=== PATIENT | female | born 1995 | race Two or more races ===

== ENCOUNTER 2025-01-07 09:43 | Outpatient (AMB) | payer MEDICAID, SELFPAY ==
--- NOTE | 2025-01-07 09:43 | AMB.OBINITIA ---
Vital Signs 01/07/25 09:56 Height 1.63 m Height Method Stated Weight 53.127 kg Weight Measurement Method Standing Scale BMI 20.0 BP 103/61 Blood Pressure Source Automatic Cuff Blood Pressure Location Left Upper Arm Position Sitting Respiration 16 Pulse 58 L Pulse Source Monitor Temp 96.8 F Temp Source Oral Pulse Oximetry (%) 98 Oxygen Delivery Method Room Air Allergies/Home Meds Allergies & Medications Allergies No Known Allergies Allergy (Verified 01/07/25 09:57) Medication Reconciliation vitamins-iron fumarate 27 mg iron-folic acid 0.8 mg tablet ( Vitamin) 1 tab PO QDAY 02/24/19 [History Confirmed 01/07/25] Intake Visit Data Collection New Patient or Established: New Patient (never been to [facility]) Reason for Visit:: Initial OB visit Consent obtained for Telemed Visit: No Seen by Clinical Staff ONLY (RN/MA): No Repair Servicer Required: No Do You Feel Safe at Home: Yes Authorities Contacted: N/A PCP or OBGYN visit in last 3 months: Yes Date of Last PCP or OBGYN visit: 11/04/24 Hx Now: Yes Are you currently on any form of Control: No Last menstrual period: 09/17/24 Pain Present Currently: No Pain Scale Used: Quick-Padilla/Numerical Pain scale:: 0 Smoking Status Smoking Status: Never smoker Questionnaires Covid-19 Vaccine Questionnaire Has patient been vacinated for Covid-19 Have you been vacinated for Covid-19: Yes PHQ-9 PHQ-2 Over the last 2 weeks, how often have you been bothered by any of the following problems? 1. Little interest or pleasure in doing things: not at all 2. Feeling down, depressed, or hopeless: not at all Total score: 0 PHQ-9 3. Trouble falling or staying asleep, or sleeping too much: Not at all 4. Feeling tired or having little energy: Not at all 5. Poor appetite or overeating: Not at all 6. Feeling bad about yourself - or that you are a failure or have let yourself or your family down: Not at all 7. Trouble concentrating on things, such as reading the newspaper or watching television: Not at all 8. Moving or speaking so slowly that other people could have noticed? - Or the opposite - being so fidgety or restless that you have been moving around a lot more than usual: not at all 9. Thoughts that you would be better off or of hurting yourself in some way: Not at all Total score: 0 If you checked off any problems, how difficult have these problems made it for you to do your work, take care of things at home, or get along with other people?: not difficult at all Source: Developed by Drs. Donato Fernando, Noris Rivero, Timmy Pete and colleagues, with an educational ermelinda from [employer]. Depression screen completed yes Social History Living Situation History Marital Status: Lives With: Family Housing: House Housing Other:: Employed at [employer] Tobacco History Smoking Status: Never smoker Second Hand Smoke Exposure: No Alcohol History Alcohol Intake: Never Domestic Abuse History Do You Feel Safe at Home: Yes Past Medical History Past Medical History Have you ever been diagnosed with any of the following: Neurological Problems Seizures: No Epilepsy: No Guillain-[place] Syndrome: No Edgar's Palsy: No Migraine: No Cardiology Problems Cardiac Arrhythmia: No Heart Murmur: No Deep Vein Thrombosis: No Hypertension: No Respiratory Problems Asthma: No Tuberculosis: No Pulmonary Embolism: No Sleep Apnea: No Smoking: No Stomache/Intestinal Problems Gall Bladder Disease: No Ulcer: No Irritable Bowel: No Gastroesophageal Reflux Disease: No Obesity: No Genital/Urinary Problems Renal Disease: No Kidney Stones: No Reproductive Problems Breast Cancer: No Endometriosis: No Fibroids: No Genital Herpes: No Gonorrhea: No Pelvic Inflammatory Disease: No Polycystic Ovarian Syndrome: No Previous Pregnancies: Yes (x3) Musculoskeletal Problems Arthritis: No Rheumatoid Arthritis: No Scoliosis: No Fibromyalgia: No Endocrine Problems Diabetes Mellitus Type 2: No Hyperthyroidism: No Hypothyroidism: No Blood Problems Anemia: No Clotting Problems: No Psychologic Problems Depression: No Anxiety: No Attention Deficit Disorder: No Other Problems Hospitalization: Yes ( x 3) Autoimmune Disease: No Blood Transfusions: No Anesthesia Reactions: No Surgical History Appendectomy: No Bariatric Surgery: No Breast Surgery: No History of Present Illness HPI Narrative 30 y/o unsure LMP presents for new OB with her spouse. Pt is tired and has increased appetite otherwise denies any OB problems, no VB, cramps, dysuria or pelvic pain, She is still her 14 month old. OB Initial Visit Menstrual History Menstrual reliability: unknown Flow: normal Menstrual regularity: regular Monthly: Yes Age at menarche: 13 On control pills at conception: No Date of positive home test: 12/17/24 Associated symptoms (LMP): Reports amenorrhea and breast tenderness Details: Pt unsure of LMP as she is breast feeding a 14 month old and has irregular cycles OB History : 4 Para: 3 Hx Total # of Abortions (Spontaneous & Elective): 0 # of Living Children: 3 Delivery History 1st : date: 02/27/19 sex: male Gestational age at delivery (weeks): 40 Delivery type: vaginal weight (lbs): 3175.147 g Delivery complications: no History of depression before or after : No Additional comments: Had epidural 2nd : date: 09/05/20 sex: female Gestational age at delivery (weeks): 39 Delivery type: vaginal weight (lbs): 2857.632 g Delivery complications: none History of depression before or after : No Additional comments: Delivered too rapidly for epidural 3rd : date: 07/03/23 sex: female Gestational age at delivery (weeks): 39 Delivery type: vaginal weight (lbs): 7200 g Delivery complications: none History of depression before or after : No Additional comments: Too rapid for epidural Infection History & Risk Evaluation History of STDs: none HIV risk evaluation: low risk Hepatitis B risk evaluation: low risk Patient or partner has history of Genital Herpes: No Varicella/chicken pox status: immunized Genetic Screening & History Genetic Screening/Teratology Counseling - Includes patient, baby's father, or anyone in either family with: 1. Patient's age 35 years or older as of estimated date of delivery: No 2. Thalassemia (Croatian, Mohawk, Mediterranean, or Background); MCV less than 80: No 3. Neural Tube Defect (Meningomyelocele, Spina Bifida, or Anencephaly): No 4. Congenital Heart Defect: No 5. Down Syndrome: No 6. Fede-Sachs (Ashkenazi Oriental Orthodox, Cajun, Indonesian North Korean): No 7. Tomi Disease (Ashkenazi Oriental Orthodox): No 8. Familial Dysautonomia (Ashkenazi Oriental Orthodox): No 9. Sickle Cell Disease or Trait (): No 10. Hemophilia or other blood disorders: No 11. Muscular Dystrophy: No 12. Cystic Fibrosis: No 13. Nola's Chorea: No 14. Mental Retardation/Autism: No 15. Other inherited genetic or chromosomal disorder: No 16. Maternal Metabolic Disorder (EG,TYPE 1 Diabetes, PKU): No 17. Patient or baby's father had a child with defects not listed above: No 18. Recurrent loss or a stillbirth: No 19. Medications (including supplements, vitamins, herbs or otc drugs)/illicit/recreational drugs/alcohol since last menstrual period: No 20. Any other: No Comments/Counseling: Pt desires NIPT, desires gender to be a surprise Infection History Other (see comments) Source: [employer] OB Flowsheet OB Flowsheet Initial Weight: Not Recorded Date <del>?</del> EGA Weight Edema CTX Effacement BP Fundal ht Pres Dilation Effacement Station Visit Note Alb Glu FHR Mov 01/07/25 <del>?</del> 10w 1d 53.127 kg 103/61 130 Review of Systems Review of Systems Systems Reviewed: All systems reviewed, normal except as documented Genitourinary Genitourinary: Reports amenorrhea Integumentary/Breasts Skin/Breast: Reports breast pain and Reports breast swelling Exam General Limitations: no limitations General Appearance: alert, in no apparent distress, comfortable, cooperative, healthy appearing, well developed and well groomed Head Head exam: atraumatic, normocephalic and normal inspection Neck Neck exam: Present normal inspection, full ROM and trachea midline Chest Chest inspection: Present normal inspection and symmetric chest wall rise Resp Respiratory exam: Present normal lung sounds bilaterally Card Cardiovascular exam: Present regular rate, normal rhythm and normal heart sounds Abdominal Abdominal exam: Present soft and normal bowel sounds External exam: Present normal external exam Bimanual exam: Present normal bimanual exam (10-11 week size uterus) and other (pap deferred, last pap in 2022 and WNL per pt) Extremities Extremities exam: Present normal inspection and full ROM Psych Psychiatric exam: Present normal affect and normal mood Skin Skin exam: Present warm, dry, intact and normal color Assessment & Plan Diagnosis / Problem List (1) : Status: Acute Qualifiers: Weeks of gestation: 10 weeks Qualified Code(s): Z3A.10 - 10 weeks gestation of (2) Unexpected : Status: Acute Plan Encouraged PNC vitamins and iron. Note for work (proof of ) WIC referral, increased calories. Pt will wean by third trimester. Desires NIPT. All PNC labs ordered and will order NIPT. Additional Plan Follow Up: 4 Weeks Office Procedures OB Clinic LOC & Office Proc's Nursing/Assessment Patient Status: Initial/New Patient OB Clinic Nursing Assessment: BP Monitoring, Medication Reconciliation, Update PMH in EMR and Vital Signs OB Clinic Coordination of Care: Consent,records obtained, informed consent, Education Simp Pt/Fam, Lab and Imaging orders and Staff clarify orders Special Needs: Heart tones New Patient Charge New Patient Point Assignment: [id number]
[2025-01-07 09:56] VITALS: BP 103/61; PULSE 58; RESP 16; TEMP 36; O2SAT 98
== END 2025-01-07 11:02 | disposition home or self-care (01) ==
LOC: HODSOBC 09:43
PROVIDERS: Supervising Provider Obstetrics & Gynecology; Visit Provider Obstetrics & Gynecology
DX: Z3A.10 10 weeks gestation of pregnancy (principal); Z34.90 Encounter for supervision of normal pregnancy, unspecified, unspecified trimester
CPT/HCPCS: 99214; G0463

== ENCOUNTER → 2025-02-07 | Outpatient (CLI) | payer MEDICAID, SELFPAY ==
--- NOTE | 2025-02-07 14:30 | XR_ITS ---
Examination: Complete OB ultrasound greater than 14 weeks Date and time of exam: February 07, 2025 1447 hours INDICATIONS: Encounter for supervision of normal Findings: Viable intrauterine single fetus with single amniotic sac presentation variable Cardiac motion 153 BPM Placenta anterior grade 1 Umbilical cord insertion seen Amniotic fluid index 12.8 cm spine posterior Right ovary 2.5 cm arterial flow Left ovary obscured by bowel gas. Composite estimated gestational age based on BPD, head circumference, abdominal circumference, femur length is 15 weeks 0 days Estimated weight 106 g. Survey of intracranial anatomy, spinal anatomy, abdominal anatomy, four-chamber heart performed with no abnormalities identified. Impression: Viable intrauterine gestation variable presentation.
== END | disposition home or self-care (01) ==
PROVIDERS: PCP Obstetrics & Gynecology; Referring Provider Obstetrics & Gynecology; Visit Provider Obstetrics & Gynecology
DX: Z34.90 Encounter for supervision of normal pregnancy, unspecified, unspecified trimester (principal)
CPT/HCPCS: 76805

== ENCOUNTER 2025-02-08 10:14 | Outpatient (AMB) | payer MEDICAID, SELFPAY ==
--- NOTE | 2025-02-08 09:47 | AMB.GYNCLNOT ---
Vital Signs 02/08/25 10:33 Height 1.63 m Height Method Stated Weight 55.565 kg Weight Measurement Method Standing Scale BMI 20.9 BP 98/62 Blood Pressure Source Automatic Cuff Blood Pressure Location Left Upper Arm Position Sitting Respiration 16 Pulse 65 Pulse Source Monitor Temp 97.2 F Temp Source Oral Pulse Oximetry (%) 99 Oxygen Delivery Method Room Air Allergies/Home Meds Allergies & Medications Allergies No Known Allergies Allergy (Verified 02/08/25 10:42) Medication Reconciliation vitamins-iron fumarate 27 mg iron-folic acid 0.8 mg tablet ( Vitamin) 1 tab PO QDAY 02/24/19 [History Confirmed 02/08/25] Intake Visit Data Collection New Patient or Established: Established Patient (seen at [facility] within 3 years) Reason for Visit:: Return OB visit, 15 weeks Seen by Clinical Staff ONLY (RN/MA): No Blind Installer Required: No Do You Feel Safe at Home: Yes Authorities Contacted: N/A PCP or OBGYN visit in last 3 months: Yes Date of Last PCP or OBGYN visit: 01/07/25 Hx Now: Yes Are you currently on any form of Control: No Pain Present Currently: No Pain Scale Used: Quick-Padilla/Numerical Pain scale:: 0 Smoking Status Smoking Status: Never smoker 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 1. Little interest or pleasure in doing things: not at all 2. Feeling down, depressed, or hopeless: not at all Total score: 0 Depression screen completed yes Social History Living Situation History Marital Status: Tobacco History Smoking Status: Never smoker Alcohol History Alcohol Intake: Never Substance Use History Substance Use: none Domestic Abuse History Do You Feel Safe at Home: Yes Past Medical History Past Medical History Have you ever been diagnosed with any of the following: Neurological Problems Cerebrovascular Accident (CVA): No Transient Ischemic Attacks (TIA): No Dementia: No Alzheimer's Disease: No Parkinson's Disease: No Brain Tumor: No Meningitis: No Seizures: No Epilepsy: No Multiple Sclerosis: No Cerebral Palsy: No Amyotrophic Lateral Sclerosis (ALS/Trini Gehrig's): No Guillain-[place] Syndrome: No Spina Bifida: No Paralysis: No Peripheral Neuropathy: No Edgar's Palsy: No Subdural Hematoma: No Migraine: No Head Trauma: No Spinal Cord Injury: No Traumatic Brain Injury: No Cardiology Problems Cardiac Arrhythmia: No Heart Murmur: No Congestive Heart Failure: No Deep Vein Thrombosis: No Hypertension: No Respiratory Problems Chronic Obstructive Pulmonary Disease (COPD): No Asthma: No Tuberculosis: No Pulmonary Embolism: No Sleep Apnea: No Smoking: No Stomache/Intestinal Problems Hepatitis: No Gall Bladder Disease: No Ulcer: No Colorectal Cancer: No Irritable Bowel: No Gastroesophageal Reflux Disease: No Obesity: No Genital/Urinary Problems Renal Disease: No Kidney Stones: No Prostate Cancer: No Reproductive Problems Breast Cancer: No Endometriosis: No Fibroids: No Genital Herpes: No Gonorrhea: No Pelvic Inflammatory Disease: No Polycystic Ovarian Syndrome: No Previous Pregnancies: Yes (x3) Testicular Cancer: No Musculoskeletal Problems Bone Cancer: No Arthritis: No Rheumatoid Arthritis: No Scoliosis: No Fibromyalgia: No Endocrine Problems Diabetes Mellitus Type 1: No Diabetes Mellitus Type 2: No Hyperthyroidism: No Hypothyroidism: No Blood Problems Anemia: No Clotting Problems: No Psychologic Problems Depression: No Anxiety: No Attention Deficit Disorder: No Other Problems Hospitalization: Yes ( x 3) Down Syndrome: No Developmental Delay: No Shingles: No Falls: No Blood Transfusions: No Blood Transfusion Reaction: No Anesthesia Reactions: No Organ Transplant: No Chemotherapy: No Radiation Therapy: No Hyperbaric Therapy: No MRSA: No VRSA: No Vancomycin-Resistant Enterococci: No Human Immunodeficiency Virus (HIV): No Chicken Pox: No Measles: No Mumps: No Rubella (Micronesian Measles): No Pertussis: No Clostridium Difficile: No Cervical Cancer: No Lung Cancer: No Ovarian Cancer: No Surgical History Appendectomy: No Bariatric Surgery: No Breast Surgery: No History of Present Illness HPI Narrative Patient is a 29-year-old -0-0-3 at approximately 15 weeks presents for routine OB visit. She had her ultrasound yesterday revealing a 15-week IUP. Patient presents today with her spouse. They are both wearing masks. She states that the family has all been fighting a stomach virus over the weekend. She is feeling better. She had low-grade fevers. We did discuss what medication she can during for cold and virus season. She denies any high-grade fevers heavy vaginal bleeding cramping. No movement yet. She had her labs drawn and her NIPT done is anxious to know the baby's gender. She has one 5-year-old son at home and 2 girls at home. Review of Systems Constitutional Constitutional: Reports system reviewed and no additional complaints, except as documented, Reports as per HPI and Reports poor appetite Comments: Patient has poor appetite due to her recent GI virus. She has had minimal vomiting with low-grade fevers no diarrhea no blood in her stool. Assessment & Plan Diagnosis / Problem List (1) : Status: Acute Qualifiers: Weeks of gestation: 15 weeks Qualified Code(s): Z3A.15 - 15 weeks gestation of Plan: For ultrasound reviewed with patient revealing a due dated 08/01/2025. Labs reviewed. NIPT reviewed. Platelets slightly low at 142. Plan to repeat platelets in 4 weeks. NIPT reveals a female fetus. Follow-up in 4 weeks. Additional Plan Follow Up: 4 Weeks Office Procedures OB Clinic LOC & Office Proc's Nursing/Assessment Patient Status: Established Patient OB Clinic Nursing Assessment: BP Monitoring, Medication Reconciliation, Update PMH in EMR and Vital Signs OB Clinic Coordination of Care: Consent,records obtained, informed consent, Education Simp Pt/Fam, Lab and Imaging orders and Staff clarify orders Special Needs: Heart tones Established Patient Charge Established Patient Point Assignment: 120 Established Patient Point Charge: EP Level 4 (120-155)
[2025-02-08 10:33] VITALS: BP 98/62; PULSE 65; RESP 16; TEMP 36.2; O2SAT 99; BMI 20.9
== END 2025-02-08 11:31 | disposition home or self-care (01) ==
LOC: HODSOBC 10:14
PROVIDERS: Supervising Provider Obstetrics & Gynecology; Visit Provider Obstetrics & Gynecology
DX: O99.612 Diseases of the digestive system complicating pregnancy, second trimester (principal); A08.4 Viral intestinal infection, unspecified; Z3A.15 15 weeks gestation of pregnancy
CPT/HCPCS: 99213; 99214; G0463

== ENCOUNTER 2025-03-18 10:06 | Outpatient (AMB) | payer MEDICAID, SELFPAY ==
[2025-03-18 10:14] VITALS: BP 103/65; PULSE 65; RESP 18; TEMP 36.2; O2SAT 99; BMI 22.2
--- NOTE | 2025-03-18 10:14 | OBCLNT_ITS ---
Vital Signs 03/18/25 10:14 Height 1.63 m Height Method Stated Weight 59.024 kg Weight Measurement Method Standing Scale BMI 22.2 BP 103/65 Blood Pressure Source Automatic Cuff Blood Pressure Location Left Upper Arm Position Sitting Respiration 18 Pulse 65 Pulse Source Monitor Temp 97.2 F Temp Source Oral Pulse Oximetry (%) 99 Oxygen Delivery Method Room Air Allergies/Home Meds Allergies & Medications Allergies No Known Allergies Allergy (Verified 03/18/25 10:15) Medication Reconciliation vitamins-iron fumarate 27 mg iron-folic acid 0.8 mg tablet ( Vitamin) 1 tab PO QDAY 02/24/19 [History Confirmed 03/18/25] miscellaneous medical supply #1 ea 03/18/25 [Rx] Intake Visit Data Collection New Patient or Established: Established Patient (seen at [facility] within 3 years) Reason for Visit:: 20 week OB visit Seen by Clinical Staff ONLY (RN/MA): No Export Manager Required: No Do You Feel Safe at Home: Yes Authorities Contacted: N/A PCP or OBGYN visit in last 3 months: Yes Date of Last PCP or OBGYN visit: 02/08/25 Hx Now: Yes Are you currently on any form of Control: No Pain Present Currently: No Pain Scale Used: Quick-Padilla/Numerical Pain scale:: 0 Smoking Status Smoking Status: Never smoker Questionnaires Covid-19 Vaccine Questionnaire Has patient been vacinated for Covid-19 Have you been vacinated for Covid-19: Yes PHQ-9 PHQ-2 Over the last 2 weeks, how often have you been bothered by any of the following problems? 1. Little interest or pleasure in doing things: not at all 2. Feeling down, depressed, or hopeless: not at all Total score: 0 PHQ-9 3. Trouble falling or staying asleep, or sleeping too much: Not at all 4. Feeling tired or having little energy: Not at all 5. Poor appetite or overeating: Not at all 6. Feeling bad about yourself - or that you are a failure or have let yourself or your family down: Not at all 7. Trouble concentrating on things, such as reading the newspaper or watching television: Not at all 8. Moving or speaking so slowly that other people could have noticed? - Or the opposite - being so fidgety or restless that you have been moving around a lot more than usual: not at all 9. Thoughts that you would be better off or of hurting yourself in some way: Not at all Total score: 0 If you checked off any problems, how difficult have these problems made it for you to do your work, take care of things at home, or get along with other people?: not difficult at all Source: Developed by Drs. Donato Fernando, Noris Rivero, Timmy Pete and colleagues, with an educational ermelinda from [employer]. 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: Yes Past Medical History Past Medical History Have you ever been diagnosed with any of the following: Neurological Problems Cerebrovascular Accident (CVA): No Transient Ischemic Attacks (TIA): No Dementia: No Alzheimer's Disease: No Parkinson's Disease: No Brain Tumor: No Meningitis: No Seizures: No Epilepsy: No Multiple Sclerosis: No Cerebral Palsy: No Amyotrophic Lateral Sclerosis (ALS/Trini Gehrig's): No Guillain-[place] Syndrome: No Spina Bifida: No Paralysis: No Peripheral Neuropathy: No Edgar's Palsy: No Subdural Hematoma: No Migraine: No Head Trauma: No Spinal Cord Injury: No Traumatic Brain Injury: No Cardiology Problems Cardiac Arrhythmia: No Heart Murmur: No Congestive Heart Failure: No Deep Vein Thrombosis: No Hypertension: No Respiratory Problems Chronic Obstructive Pulmonary Disease (COPD): No Asthma: No Tuberculosis: No Pulmonary Embolism: No Sleep Apnea: No Smoking: No Stomache/Intestinal Problems Hepatitis: No Gall Bladder Disease: No Ulcer: No Colorectal Cancer: No Irritable Bowel: No Gastroesophageal Reflux Disease: No Obesity: No Genital/Urinary Problems Renal Disease: No Kidney Stones: No Reproductive Problems Breast Cancer: No Endometriosis: No Fibroids: No Genital Herpes: No Gonorrhea: No Pelvic Inflammatory Disease: No Polycystic Ovarian Syndrome: No Previous Pregnancies: Yes (x3) Musculoskeletal Problems Bone Cancer: No Arthritis: No Rheumatoid Arthritis: No Scoliosis: No Fibromyalgia: No Endocrine Problems Diabetes Mellitus Type 1: No Diabetes Mellitus Type 2: No Hyperthyroidism: No Hypothyroidism: No Blood Problems Anemia: No Clotting Problems: No Psychologic Problems Depression: No Anxiety: No Attention Deficit Disorder: No Other Problems Hospitalization: Yes ( x 3) Down Syndrome: No Developmental Delay: No Shingles: No Falls: No Blood Transfusions: No Blood Transfusion Reaction: No Anesthesia Reactions: No Organ Transplant: No Chemotherapy: No Radiation Therapy: No Hyperbaric Therapy: No MRSA: No VRSA: No Vancomycin-Resistant Enterococci: No Human Immunodeficiency Virus (HIV): No Chicken Pox: No Measles: No Mumps: No Rubella (Japanese Measles): No Pertussis: No Clostridium Difficile: No Cervical Cancer: No Lung Cancer: No Ovarian Cancer: No Surgical History Appendectomy: No Bariatric Surgery: No Breast Surgery: No Visit OB Visit Log OB Flowsheet Initial Weight: Not Recorded Date -?-?-?-?-?-?-?-?-?-?-?-?- EGA Weight Edema CTX Effacement BP Fundal ht Pres Dilation Effacement Station Visit Note Alb Glu FHR Mov 01/07/25 -?-?-?-?-?-?-?-?-?-?-?-?- 10w 4d 53.127 kg 103/61 130 03/18/25 -?-?-?-?-?-?-?-?-?-?-?-?- 20w 4d 59.024 kg 103/65 Stru ctural Survey order [facility]. 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 reported 01/23/25 reviewed. Patient's blood type is A positive\antibody screen negative\RPR nonreactive\rubella immune\hepatitis B surface antigen negative\hep C negative\GC chlamydia negative\HIV negative. Hemoglobin 12.1 hematocrit 37.6 platelets 142 which are slightly low NIPT is normal 46XX. Urine culture no growth. Expected Delivery Route/Plan Anticipate . Patient has had 3 uncomplicated vaginal deliveries. Specific Issue/Plans Keep an eye on platelets. Patient has 1 boy at home and 2 girls. This is another girl. Notes Visit Date: 03/18/25 Last Updated by: Italia Reyna (OB Clinic)MD Patient doing well. Will print out [facility] records. Structural survey ordered. She knows this is a another girl. She has 1 boy at home and now this is 3 girls. Patient has pubic bone diastases pain and I will order a brace. She will follow-up in 4 weeks. Assessment & Plan Diagnosis / Problem List (1) : Status: Acute Qualifiers: Weeks of gestation: 20 weeks Qualified Code(s): Z3A.20 - 20 weeks gestation of Assessment and Plan: Brace ordered pubic diastases. Structural survey ordered. Follow-up in 4 weeks. Additional Plan Follow Up: 4 Weeks Office Procedures OB Clinic LOC & Office Proc's Nursing/Assessment Patient Status: Established Patient OB Clinic Nursing Assessment: BP Monitoring, Medication Reconciliation, Update PMH in EMR and Vital Signs OB Clinic Coordination of Care: Consent,records obtained, informed consent, Education Simp Pt/Fam and Staff clarify orders Special Needs: Heart tones Established Patient Charge Established Patient Point Assignment: 105 Established Patient Point Charge: EP Level 3 (80-115)
== END 2025-03-18 11:11 | disposition home or self-care (01) ==
LOC: HODSOBC 10:06
PROVIDERS: Supervising Provider Obstetrics & Gynecology; Visit Provider Obstetrics & Gynecology
DX: Z34.82 Encounter for supervision of other normal pregnancy, second trimester (principal); Z3A.20 20 weeks gestation of pregnancy
CPT/HCPCS: 99213; G0463

== ENCOUNTER 2025-05-24 12:56 | Outpatient (AMB) | payer MEDICAID, SELFPAY ==
[2025-05-24 13:00] VITALS: BP 105/65; PULSE 66; RESP 14; TEMP 36.8; O2SAT 98; BMI 24.0
--- NOTE | 2025-05-24 13:00 | AMB.OBVISIT ---
Vital Signs 05/24/25 13:00 Height 1.63 m Height Method Stated Weight 64.013 kg Weight Measurement Method Standing Scale BMI 24.0 BP 105/65 Blood Pressure Source Automatic Cuff Blood Pressure Location Right Upper Arm Position Sitting Respiration 14 Pulse 66 Pulse Source Monitor Temp 98.3 F Temp Source Oral Pulse Oximetry (%) 98 Oxygen Delivery Method Room Air Allergies/Home Meds Allergies & Medications Allergies No Known Allergies Allergy (Verified 05/24/25 13:01) Medication Reconciliation vitamins-iron fumarate 27 mg iron-folic acid 0.8 mg tablet ( Vitamin) 1 tab PO QDAY 02/24/19 [History Confirmed 05/24/25] miscellaneous medical supply #1 ea 03/18/25 [Rx Confirmed 05/24/25] Intake Visit Data Collection New Patient or Established: Established Patient (seen at [facility] within 3 years) Reason for Visit:: CARE Seen by Clinical Staff ONLY (RN/MA): No White 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 1. Little interest or pleasure in doing things: not at all 2. Feeling down, depressed, or hopeless: not at all Total score: 0 PHQ-9 3. Trouble falling or staying asleep, or sleeping too much: Not at all 4. Feeling tired or having little energy: Not at all 5. Poor appetite or overeating: Not at all 6. Feeling bad about yourself - or that you are a failure or have let yourself or your family down: Not at all 7. Trouble concentrating on things, such as reading the newspaper or watching television: Not at all 8. Moving or speaking so slowly that other people could have noticed? - Or the opposite - being so fidgety or restless that you have been moving around a lot more than usual: not at all 9. Thoughts that you would be better off or of hurting yourself in some way: Not at all Total score: 0 Source: Developed by Drs. Donato Fernando, Noris Rivero, Timmy Pete and colleagues, with an educational ermelinda from [employer]. 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 Past Medical History: No Hx Neurological Disorders, No Hx Hypothyroidism, No Hx Hyperthyroidism, No Hx Breast Cancer, No Hx Cardiac Disorders, No Hx Hypertension, No Hx Blood Disorders, No Hx Anemia, No Hx Gastrointestinal Disorders, No Hx Renal Disease, No Hx Deep Vein Thrombosis, No Hx Diabetes Mellitus Type 1, No Hx Diabetes Mellitus Type 2 and No Hx Polycystic Ovarian Syndrome Care OB Visit Log OB Flowsheet Initial Weight: Not Recorded Date <del>?</del> EGA Weight BP Alb Glu CTX Pres Fundal ht FHR Mov Dilation Station Effacement Hx Notes Visit Note 01/07/25 <del>?</del> 10w 4d 53.127 kg 103/61 130 03/18/25 <del>?</del> 20w 4d 59.024 kg 103/65 140 active Structural Survey order [facility]. Brace ordered for pubic bone diastasis 05/24/25 <del>?</del> 30w 1d 64.013 kg 105/65 active Having a hard time getting ultrasound ordered will order here for [facility]. Good movement no contractions no loss of fluids. SADAF Calculator Estimated Delivery Date Method Current WG Current Estimate 08/01/25 Ultrasound #2 30w 1d Other Estimates 07/18/25 LMP (Uncertain) 32w 1d 08/04/25 Ultrasound #1 29w 5d Expected Delivery Route/Plan 29-year-old -0-0-3 status post vaginal delivery x 3 anticipate . Patient has had 3 uncomplicated vaginal deliveries. care labs on chart a positive/antibody negative/rubella immune/RPR nonreactive/HIV negative hepatitis B surface antigen negative//hep C negative/GC negative Chlamydia negative NIPT 46XX urine culture negative/ Ultrasound at [facility] on 02/07/25 15 and 0/7 weeks AGA Specific Issue/Plans Keep an eye on platelets. Patient has 1 boy at home and 2 girls. This is another girl. Notes Visit Date: 03/18/25 Last Updated by: Italia Reyna (OB Clinic)MD Patient doing well. Will print out [facility] records. Structural survey ordered. She knows this is a another girl. She has 1 boy at home and now this is 3 girls. Patient has pubic bone diastases pain and I will order a brace. She will follow-up in 4 weeks. Office Procedures OB Clinic LOC & Office Proc's Nursing/Assessment Patient Status: Established Patient OB Clinic Nursing Assessment: Medication Reconciliation, Update PMH in EMR and Vital Signs OB Clinic Coordination of Care: Complex Care and Chronic Disease 1-5, Consent,records obtained, informed consent, Education Simp Pt/Fam, Lab and Imaging orders, Results/Orders obtained and Staff clarify orders Special Needs: Heart tones Established Patient Charge Established Patient Point Assignment: 135 Established Patient Point Charge: EP Level 4 (120-155) Assessment & Plan Diagnosis / Problem List (1) : Status: Acute Qualifiers: Weeks of gestation: 30 weeks Qualified Code(s): Z3A.30 - 30 weeks gestation of
== END 2025-05-24 13:35 | disposition home or self-care (01) ==
LOC: HODSOBC 12:56
PROVIDERS: Supervising Provider Obstetrics & Gynecology; Visit Provider Obstetrics & Gynecology
DX: Z34.83 Encounter for supervision of other normal pregnancy, third trimester (principal); Z3A.30 30 weeks gestation of pregnancy
CPT/HCPCS: 99214; G0463

== ENCOUNTER 2025-06-13 13:30 | Outpatient (AMB) | payer MEDICAID, SELFPAY ==
[2025-06-13 13:37] VITALS: BP 109/68; PULSE 70; RESP 17; TEMP 36.8; O2SAT 98; BMI 24.6
--- NOTE | 2025-06-13 13:37 | AMB.OBVISIT ---
Vital Signs 06/13/25 13:37 Height 1.63 m Height Method Measured Weight 65.544 kg Weight Measurement Method Standing Scale BMI 24.6 BP 109/68 Blood Pressure Source Automatic Cuff Blood Pressure Location Right Upper Arm Position Sitting Respiration 17 Pulse 70 Pulse Source Monitor Temp 98.2 F Temp Source Temporal Artery Scan Pulse Oximetry (%) 98 Oxygen Delivery Method Room Air Allergies/Home Meds Allergies & Medications Allergies No Known Allergies Allergy (Verified 06/13/25 13:38) Medication Reconciliation vitamins-iron fumarate 27 mg iron-folic acid 0.8 mg tablet ( Vitamin) 1 tab PO QDAY 02/24/19 [History Confirmed 06/13/25] Intake Visit Data Collection New Patient or Established: Established Patient (seen at [facility] within 3 years) Reason for Visit:: C Consent obtained for Telemed Visit: No Seen by Clinical Staff ONLY (RN/MA): No Circus Trainer Required: No Do You Feel Safe at Home: Yes Authorities Contacted: N/A PCP or OBGYN visit in last 3 months: Yes Date of Last PCP or OBGYN visit: 05/24/25 Hx Now: Yes Are you currently on any form of Control: No Pain Scale Used: Quick-Padilla/Numerical Pain scale:: 0 Smoking Status Smoking Status: Never smoker Questionnaires Covid-19 Vaccine Questionnaire Has patient been vacinated for Covid-19 Have you been vacinated for Covid-19: Yes PHQ-9 PHQ-2 Over the last 2 weeks, how often have you been bothered by any of the following problems? 1. Little interest or pleasure in doing things: not at all PHQ-9 8. Moving or speaking so slowly that other people could have noticed? - Or the opposite - being so fidgety or restless that you have been moving around a lot more than usual: not at all Source: Developed by Drs. Donato Fernando, Noris Rivero, Timmy Peet and colleagues, with an educational ermelinda from [employer]. 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 She has a 5-year-old son, a 4-year-old daughter, and a 1-year-old daughter at home. Care OB Visit Log OB Flowsheet Initial Weight: Not Recorded Date <del>?</del> EGA Weight BP Alb Glu CTX Pres Fundal ht FHR Mov Dilation Station Effacement Hx Notes Visit Note 01/07/25 <del>?</del> 10w 4d 53.127 kg 103/61 130 03/18/25 <del>?</del> 20w 4d 59.024 kg 103/65 140 active Structural Survey order [facility]. Brace ordered for pubic bone diastasis 05/24/25 <del>?</del> 30w 1d 64.013 kg 105/65 active Having a hard time getting ultrasound ordered will order here for [facility]. Good movement no contractions no loss of fluids. 06/13/25 <del>?</del> 33w 0d 65.544 kg 109/68 125 active Had an ultrasound done at [facility]. No report yet. This was about 2 weeks ago. Good movement no contractions no loss of fluids. Works at [employer] and request going off work in about 3 weeks. Patient is around 32 weeks . SADAF Calculator Estimated Delivery Date Method Current WG Current Estimate 08/01/25 Ultrasound #2 33w 0d Other Estimates 07/18/25 LMP (Uncertain) 35w 0d 08/04/25 Ultrasound #1 32w 4d Expected Delivery Route/Plan 29-year-old -0-0-3 status post vaginal delivery x 3 anticipate . Patient has had 3 uncomplicated vaginal deliveries. care labs on chart:A positive/antibody negative/rubella immune/RPR nonreactive/HIV negative/ hepatitis B surface antigen negative/hep C negative/GC negative/ Chlamydia negative /NIPT 46XX /urine culture negative/ Ultrasound at [facility] on 02/07/25 15 and 0/7 weeks AGA Specific Issue/Plans Keep an eye on platelets. Patient has 1 boy at home and 2 girls. This is another girl. Patient had an epidural with first . No epidural on the other 2 deliveries. Unsure about epidural this delivery. Notes Visit Date: 03/18/25 Last Updated by: Italia Reyna (OB Clinic)MD Patient doing well. Will print out [facility] records. Structural survey ordered. She knows this is a another girl. She has 1 boy at home and now this is 3 girls. Patient has pubic bone diastases pain and I will order a brace. She will follow-up in 4 weeks. Office Procedures OB Clinic LOC & Office Proc's Nursing/Assessment Patient Status: Established Patient OB Clinic Nursing Assessment: Medication Reconciliation, Update PMH in EMR and Vital Signs OB Clinic Coordination of Care: Complex Care and Chronic Disease 1-5, Consent,records obtained, informed consent, Education Simp Pt/Fam and 4+ Authorizations needed Special Needs: Heart tones Established Patient Charge Established Patient Point Assignment: 130 Established Patient Point Charge: EP Level 4 (120-155)
== END 2025-06-13 14:16 | disposition home or self-care (01) ==
LOC: HODSOBC 13:30
PROVIDERS: Supervising Provider Obstetrics & Gynecology; Visit Provider Obstetrics & Gynecology
DX: Z34.83 Encounter for supervision of other normal pregnancy, third trimester (principal); Z3A.32 32 weeks gestation of pregnancy
CPT/HCPCS: 99214; G0463

== ENCOUNTER 2025-07-01 14:38 | Outpatient (AMB) | payer MEDICAID, SELFPAY ==
[2025-07-01 14:52] VITALS: BP 104/66; PULSE 72; RESP 17; TEMP 36.7; O2SAT 97; BMI 25.0
--- NOTE | 2025-07-01 14:52 | AMB.OBVISIT ---
Vital Signs 07/01/25 14:52 Height 1.63 m Height Method Measured Weight 66.451 kg Weight Measurement Method Standing Scale BMI 25.0 BP 104/66 Blood Pressure Source Automatic Cuff Blood Pressure Location Right Upper Arm Position Sitting Respiration 17 Pulse 72 Pulse Source Monitor Temp 98.1 F Temp Source Temporal Artery Scan Pulse Oximetry (%) 97 Oxygen Delivery Method Room Air Allergies/Home Meds Allergies & Medications Allergies No Known Allergies Allergy (Verified 07/01/25 14:53) Medication Reconciliation vitamins-iron fumarate 27 mg iron-folic acid 0.8 mg tablet ( Vitamin) 1 tab PO QDAY 02/24/19 [History Confirmed 07/01/25] Intake Visit Data Collection New Patient or Established: Established Patient (seen at [facility] within 3 years) Reason for Visit:: OBC Consent obtained for Telemed Visit: No Seen by Clinical Staff ONLY (RN/MA): No Software Engineer Mobile Required: No Do You Feel Safe at Home: Yes Authorities Contacted: N/A PCP or OBGYN visit in last 3 months: Yes Date of Last PCP or OBGYN visit: 06/13/25 Hx Now: Yes Are you currently on any form of Control: No Pain Present Currently: No Pain Scale Used: Quick-Padilla/Numerical Pain scale:: 0 Smoking Status Smoking Status: Never smoker Questionnaires Covid-19 Vaccine Questionnaire Has patient been vacinated for Covid-19 Have you been vacinated for Covid-19: Yes PHQ-9 PHQ-2 Over the last 2 weeks, how often have you been bothered by any of the following problems? 1. Little interest or pleasure in doing things: not at all PHQ-9 8. Moving or speaking so slowly that other people could have noticed? - Or the opposite - being so fidgety or restless that you have been moving around a lot more than usual: not at all Source: Developed by Drs. Donato Fernando, Noris Rivero, Timmy Pete and colleagues, with an educational ermelinda from [employer]. 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 Past Medical History: No Hx Neurological Disorders, No Hx Hypothyroidism, No Hx Hyperthyroidism, No Hx Breast Cancer, No Hx Cardiac Disorders, No Hx Hypertension, No Hx Blood Disorders, No Hx Anemia, No Hx Gastrointestinal Disorders, No Hx Renal Disease, No Hx Deep Vein Thrombosis, No Hx Diabetes Mellitus Type 1, No Hx Diabetes Mellitus Type 2 and No Hx Polycystic Ovarian Syndrome Care OB Visit Log OB Flowsheet Initial Weight: Not Recorded Date <del>?</del> EGA Weight BP Alb Glu CTX Pres Fundal ht FHR Mov Dilation Station Effacement Hx Notes Visit Note 01/07/25 <del>?</del> 10w 4d 53.127 kg 103/61 130 03/18/25 <del>?</del> 20w 4d 59.024 kg 103/65 140 active Structural Survey order [facility]. Brace ordered for pubic bone diastasis 05/24/25 <del>?</del> 30w 1d 64.013 kg 105/65 active Having a hard time getting ultrasound ordered will order here for [facility]. Good movement no contractions no loss of fluids. 06/13/25 <del>?</del> 33w 0d 65.544 kg 109/68 125 active Had an ultrasound done at [facility]. No report yet. This was about 2 weeks ago. Good movement no contractions no loss of fluids. Works at [employer] and request going off work in about 3 weeks. Patient is around 32 weeks . 07/01/25 <del>?</del> 35w 4d 66.451 kg 104/66 occasional cephalic 36 147 active +FM, No UCs, No VB Need GBBS next visit SADAF Calculator Estimated Delivery Date Method Current WG Current Estimate 08/01/25 Ultrasound #2 35w 4d Other Estimates 07/18/25 LMP (Uncertain) 37w 4d 08/04/25 Ultrasound #1 35w 1d Expected Delivery Route/Plan 29-year-old -0-0-3 status post vaginal delivery x 3 anticipate . Patient has had 3 uncomplicated vaginal deliveries. care labs on chart:A positive/antibody negative/rubella immune/RPR nonreactive/HIV negative/ hepatitis B surface antigen negative/hep C negative/GC negative/ Chlamydia negative /NIPT 46XX /urine culture negative/ Ultrasound at [facility] on 02/07/25 15 and 0/7 weeks AGA Specific Issue/Plans Keep an eye on platelets. Patient has 1 boy at home and 2 girls. This is another girl. Patient had an epidural with first . No epidural on the other 2 deliveries. Unsure about epidural this delivery. Notes Visit Date: 07/01/25 Last Updated by: Italia Reyna (OB Clinic)MD Patient is doing well. Reviewed 1 hour glucose at 108. Platelets are 124. Need report on chart of [facility] ultrasound. Visit Date: 03/18/25 Last Updated by: Italia Reyna (OB Clinic)MD Patient doing well. Will print out [facility] records. Structural survey ordered. She knows this is a another girl. She has 1 boy at home and now this is 3 girls. Patient has pubic bone diastases pain and I will order a brace. She will follow-up in 4 weeks. Office Procedures OB Clinic LOC & Office Proc's Nursing/Assessment Patient Status: Established Patient OB Clinic Nursing Assessment: Medication Reconciliation, Update PMH in EMR and Vital Signs OB Clinic Coordination of Care: Complex Care and Chronic Disease 1-5, Consent,records obtained, informed consent, Education Simp Pt/Fam and Results/Orders obtained Special Needs: Heart tones Established Patient Charge Established Patient Point Assignment: 110 Established Patient Point Charge: EP Level 3 (80-115) Assessment & Plan Diagnosis / Problem List (1) : Status: Acute Qualifiers: Weeks of gestation: 36 weeks Qualified Code(s): Z3A.36 - 36 weeks gestation of
== END 2025-07-01 15:26 | disposition home or self-care (01) ==
LOC: HODSOBC 14:38
PROVIDERS: Supervising Provider Obstetrics & Gynecology; Visit Provider Obstetrics & Gynecology
DX: Z34.83 Encounter for supervision of other normal pregnancy, third trimester (principal); Z3A.35 35 weeks gestation of pregnancy
CPT/HCPCS: 99213; G0463

== ENCOUNTER 2025-07-13 10:08 | Outpatient (AMB) | payer MEDICAID, SELFPAY ==
--- NOTE | 2025-07-13 10:48 | OBCLNT_ITS ---
Vital Signs 07/13/25 10:49 Height 1.63 m Height Method Measured Weight 67.245 kg Weight Measurement Method Standing Scale BMI 25.3 BP 113/71 Blood Pressure Source Automatic Cuff Blood Pressure Location Right Upper Arm Position Sitting Respiration 17 Pulse 66 Pulse Source Monitor Temp 98.1 F Temp Source Temporal Artery Scan Pulse Oximetry (%) 98 Oxygen Delivery Method Room Air Allergies/Home Meds Allergies & Medications Allergies No Known Allergies Allergy (Verified 07/13/25 10:49) Medication Reconciliation vitamins-iron fumarate 27 mg iron-folic acid 0.8 mg tablet ( Vitamin) 1 tab PO QDAY 02/24/19 [History Confirmed 07/13/25] Intake Visit Data Collection New Patient or Established: Established Patient (seen at [facility] within 3 years) Reason for Visit:: OBC Consent obtained for Telemed Visit: No Seen by Clinical Staff ONLY (RN/MA): No Radiology Specialist Required: No Do You Feel Safe at Home: Yes Authorities Contacted: N/A PCP or OBGYN visit in last 3 months: Yes Date of Last PCP or OBGYN visit: 07/01/25 Hx Now: Yes Are you currently on any form of Control: No Pain Present Currently: No Pain Scale Used: Quick-Padilla/Numerical Pain scale:: 0 Smoking Status Smoking Status: Never smoker Questionnaires Covid-19 Vaccine Questionnaire Has patient been vacinated for Covid-19 Have you been vacinated for Covid-19: Yes PHQ-9 PHQ-2 Over the last 2 weeks, how often have you been bothered by any of the following problems? 1. Little interest or pleasure in doing things: not at all PHQ-9 8. Moving or speaking so slowly that other people could have noticed? - Or the opposite - being so fidgety or restless that you have been moving around a lot more than usual: not at all Source: Developed by Drs. Donato Fernando, Noris Rivero, Timmy Pete and colleagues, with an educational ermelinda from [employer]. 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-?-?-?- 10w 4d 53.127 kg 103/61 130 03/18/25 -?-?-?-?-?-?-?-?-?-?-?-?- 20w 4d 59.024 kg 103/65 140 active Structural Survey order [facility]. Brace ordered for pubic bone diastasis 05/24/25 -?-?-?-?-?-?-?-?-?-?-?-?- 30w 1d 64.013 kg 105/65 active Having a hard time getting ultrasound ordered will order here for [facility]. Good movement no contractions no loss of fluids. 06/13/25 -?-?-?-?-?-?-?-?-?-?-?-?- 33w 0d 65.544 kg 109/68 125 active Had an ultrasound done at [facility]. No report yet. This was about 2 weeks ago. Good movement no contractions no loss of fluids. Works at [employer] and request going off work in about 3 weeks. Patient is around 32 weeks . 07/01/25 -?-?-?-?-?-?-?-?-?-?-?-?- 35w 4d 66.451 kg 104/66 occasional cephalic 36 147 active +FM, No UCs, No VB Need GBBS next v isit 07/13/25 -?-?-?-?-?-?-?-?-?-?-?-?- 37w 2d 67.245 kg 113/71 occasional cephalic 37 134 active Good movement no contractions no vaginal bleeding. Declined cervical check today group B strep done today SADAF Calculator Estimated Delivery Date Method Current WG Current Estimate 08/01/25 Ultrasound #2 37w 2d Other Estimates 07/18/25 LMP (Uncertain) 39w 2d 08/04/25 Ultrasound #1 36w 6d Expected Delivery Route/Plan 29-year-old -0-0-3 status post vaginal delivery x 3 anticipate . Patient has had 3 uncomplicated vaginal deliveries. care labs on chart:A +/antibody negative/rubella immune/RPR nonreactive/HIV negative/ hepatitis B surface antigen negative/hep C negative/GC negative/ Chlamydia negative /NIPT 46XX /urine culture negative/ Ultrasound at [facility] on 02/07/25 15 and 0/7 weeks AGA Specific Issue/Plans Keep an eye on platelets. Patient has 1 boy at home and 2 girls. This is another girl. Patient had an epidural with first . No epidural on the other 2 deliveries. Unsure about epidural this delivery. Notes Visit Date: 07/13/25 Last Updated by: Italia Reyna (OB Clinic)MD No complaints. Return in 1 week. Patient will decline epidural. Visit Date: 07/01/25 Last Updated by: Italia Reyna (OB Clinic)MD Patient is doing well. Reviewed 1 hour glucose at 108. Platelets are 124. Need report on chart of [facility] ultrasound. Visit Date: 03/18/25 Last Updated by: Italia Reyna (OB Clinic)MD Patient doing well. Will print out [facility] records. Structural survey ordered. She knows this is a another girl. She has 1 boy at home and now this is 3 girls. Patient has pubic bone diastases pain and I will order a brace. She will follow-up in 4 weeks. Office Procedures OB Clinic LOC & Office Proc's Nursing/Assessment Patient Status: Established Patient OB Clinic Nursing Assessment: Medication Reconciliation, Update PMH in EMR and Vital Signs OB Clinic Coordination of Care: Complex Care and Chronic Disease 1-5, Consent,records obtained, informed consent, Education Simp Pt/Fam, 4+ Authorizations needed, Lab and Imaging orders and Results/Orders obtained Special Needs: Heart tones Established Patient Charge Established Patient Point Assignment: 150 Established Patient Point Charge: EP Level 4 (120-155) Assessment & Plan Diagnosis / Problem List (1) : Status: Acute Qualifiers: Weeks of gestation: 37 weeks Qualified Code(s): Z3A.37 - 37 weeks gestation of Additional Plan Follow Up: 1 Week
[2025-07-13 10:49] VITALS: BP 113/71; PULSE 66; RESP 17; TEMP 36.7; O2SAT 98; BMI 25.3
== END 2025-07-13 11:34 | disposition home or self-care (01) ==
LOC: HODSOBC 10:08
PROVIDERS: Supervising Provider Obstetrics & Gynecology; Visit Provider Obstetrics & Gynecology
DX: Z34.83 Encounter for supervision of other normal pregnancy, third trimester (principal); Z3A.37 37 weeks gestation of pregnancy; Z36.85 Encounter for antenatal screening for Streptococcus B
CPT/HCPCS: 99214; G0463

== ENCOUNTER 2025-07-19 11:38 | Outpatient (AMB) | payer MEDICAID, SELFPAY ==
--- NOTE | 2025-07-19 12:16 | OBCLNT_ITS ---
Vital Signs 07/19/25 12:17 Height 1.63 m Height Method Stated Weight 68.039 kg Weight Measurement Method Standing Scale BMI 25.6 BP 120/80 Blood Pressure Source Automatic Cuff Blood Pressure Location Left Upper Arm Position Sitting Respiration 16 Pulse 76 Pulse Source Monitor Temp 98.1 F Temp Source Oral Pulse Oximetry (%) 98 Oxygen Delivery Method Room Air Allergies/Home Meds Allergies & Medications Allergies No Known Allergies Allergy (Verified 07/19/25 12:18) Medication Reconciliation vitamins-iron fumarate 27 mg iron-folic acid 0.8 mg tablet ( Vitamin) 1 tab PO QDAY 02/24/19 [History Confirmed 07/19/25] Intake Visit Data Collection New Patient or Established: Established Patient (seen at [facility] within 3 years) Reason for Visit:: CARE Seen by Clinical Staff ONLY (RN/MA): No 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 1. Little interest or pleasure in doing things: not at all 2. Feeling down, depressed, or hopeless: not at all Total score: 0 PHQ-9 3. Trouble falling or staying asleep, or sleeping too much: Not at all 4. Feeling tired or having little energy: Not at all 5. Poor appetite or overeating: Not at all 6. Feeling bad about yourself - or that you are a failure or have let yourself or your family down: Not at all 7. Trouble concentrating on things, such as reading the newspaper or watching television: Not at all 8. Moving or speaking so slowly that other people could have noticed? - Or the opposite - being so fidgety or restless that you have been moving around a lot more than usual: not at all 9. Thoughts that you would be better off or of hurting yourself in some way: Not at all Total score: 0 Source: Developed by Drs. Donato Fernando, Noris Rivero, Timmy Pete and colleagues, with an educational ermelinda from [employer]. 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-?-?-?- 10w 4d 53.127 kg 103/61 130 03/18/25 -?-?-?-?-?-?-?-?-?-?-?-?- 20w 4d 59.024 kg 103/65 140 active Structural Survey order [facility]. Brace ordered for pubic bone diastasis 05/24/25 -?-?-?-?-?-?-?-?-?-?-?-?- 30w 1d 64.013 kg 105/65 active Having a hard time getting ultrasound ordered will order here for [facility]. Good movement no contractions no loss of fluids. 06/13/25 -?-?-?-?-?-?-?--?-?-?-?-?- 33w 0d 65.544 kg 109/68 125 active Had an ultrasound done at [facility]. No report yet. This was about 2 weeks ago. Good movement no contractions no loss of fluids. Works at [employer] and request going off work in about 3 weeks. Patient is around 32 weeks . 07/01/25 -?-?-?-?-?-?-?-?-?-?-?-?- 35w 4d 66.451 kg 104/66 occasional cephalic 36 147 active +FM, No UCs, No VB Need GBBS next v isit 07/13/25 -?-?-?-?-?-?-?-?-?-?-?-?- 37w 2d 67.245 kg 113/71 occasional cephalic 37 134 active Good movement no contractions no vaginal bleeding. Declined cervical check today group B strep done today 07/19/25 -?-?-?-?-?-?-?-?-?-?-?-?- 38w 1d 68.039 kg 120/80 occasional cephalic 38 134 active Reports good movement. Denies contractions. Denies leaking. Denies bleeding. Discussed GBS results. Discussed labor precautions and kick count. Return in a week OB check SADAF Calculator 2 Estimated Delivery Date Method Current WG Current Estimate 08/01/25 Ultrasound #2 38w 1d Other Estimates 07/18/25 LMP (Uncertain) 40w 1d 08/04/25 Ultrasound #1 37w 5d Expected Delivery Route/Plan 29-year-old -0-0-3 status post vaginal delivery x 3 anticipate . Patient has had 3 uncomplicated vaginal deliveries. care labs on chart:A +/antibody negative/rubella immune/RPR nonreactive/HIV negative/ hepatitis B surface antigen negative/hep C negative/GC negative/ Chlamydia negative /NIPT 46XX /urine culture negative/ Ultrasound at [facility] on 02/07/25 15 and 0/7 weeks AGA Specific Issue/Plans Keep an eye on platelets. Patient has 1 boy at home and 2 girls. This is another girl. Patient had an epidural with first . No epidural on the other 2 deliveries. Unsure about epidural this delivery. Notes Visit Date: 07/19/25 Last Updated by: Onelia Mascorro CNM OB panel: A+.abs-, rpr;;nr, rub imm, hbsag-,hiv-,HC-, GC/CT-, NIPT- Visit Date: 07/13/25 Last Updated by: Italia Reyna (OB Clinic), MD No complaints. Return in 1 week. Patient will decline epidural. Visit Date: 07/01/25 Last Updated by: Italia Reyna (OB Clinic)MD Patient is doing well. Reviewed 1 hour glucose at 108. Platelets are 1 24. Need report on chart of [facility] ultrasound. Visit Date: 03/18/25 Last Updated by: Italia GeigerOB Clinic)MD Patient doing well. Will print out [facility] records. Structural survey ordered. She knows this is a another girl. She has 1 boy at home and now this is 3 girls. Patient has pubic bone diastases pain and I will order a brace. She will follow-up in 4 weeks. Office Procedures OB Clinic LOC & Office Proc's Nursing/Assessment Patient Status: Established Patient OB Clinic Nursing Assessment: Medication Reconciliation, Update PMH in EMR and Vital Signs OB Clinic Coordination of Care: Complex Care and Chronic Disease 1-5, Consent,records obtained, informed consent, Education Simp Pt/Fam, 1 Ins Authorization, Lab and Imaging orders, Results/Orders obtained and Staff clarify orders Special Needs: Heart tones Established Patient Charge Established Patient Point Assignment: 150 Established Patient Point Charge: EP Level 4 (120-155) Assessment & Plan Diagnosis / Problem List (1) Normal in third trimester: Status: Acute Plan Discussed positive GBS. Discussed labor precautions. Kick count. Discussed ER precautions. Return week OB check Additional Plan Follow Up: 1 Week (obc)
[2025-07-19 12:17] VITALS: BP 120/80; PULSE 76; RESP 16; TEMP 36.7; O2SAT 98; BMI 25.6
== END 2025-07-19 13:10 | disposition home or self-care (01) ==
LOC: HODSOBC 11:38
PROVIDERS: Supervising Provider Advanced Practice Midwife; Visit Provider Advanced Practice Midwife
DX: O09.893 Supervision of other high risk pregnancies, third trimester (principal); O99.820 Streptococcus B carrier state complicating pregnancy; Z3A.38 38 weeks gestation of pregnancy
CPT/HCPCS: 99214; G0463

== ENCOUNTER 2025-07-26 04:48 | Inpatient (IN) | payer MEDICAID, SELFPAY ==
[2025-07-26] VITALS (96 sets, daily range): BP systolic 98–133; BP diastolic 55–85; PULSE 59–89; RESP 16–98; TEMP 36.7–37.5; O2SAT 98–100; BMI 28.3
[2025-07-26 06:09] LABS: Basophils # (Auto) 0.0 Thou/mm3 (0.0-0.2); Basophils % (Auto) 0 % (0-2.5); Eosinophils # (Auto) 0.1 Thou/mm3 (0.0-0.5); Eosinophils % (Auto) 1 % (0-10); Hematocrit 33.6 % (36.0-46.0); Hemoglobin 10.8 g/dL (12.0-16.0); Immature Granulocytes Auto 0.02 Thou/mm3 (0.00-0.00); Lymphocytes # (Auto) 1.9 Thou/mm3 (1.0-4.8); Lymphocytes % (Auto) 27 % (10-50); Mean Corpuscular HGB Conc 32.1 g/dl (31.0-37.0); Mean Corpuscular Hemoglobin 24.7 pg (25.0-35.0); Mean Corpuscular Volume 77 fL (80-100); Monocytes # (Auto) 0.5 Thou/mm3 (0.0-0.8); Monocytes % (Auto) 7 % (0-12); Neutrophils # (Auto) 4.6 Thou/mm3 (1.8-7.7); Neutrophils % (Auto) 64 % (37-80); Nucleated Red Blood Cell # 0.00 Thou/mm3 (0.00-0.00); Nucleated Red Blood Cell % 0 /100 WBC (0); Platelet Count 128 Thou/mm3 (140-440); RDW Standard Deviation 37.2 fL (36.4-46.3); Red Blood Count 4.38 Miln/mm3 (4.00-5.20); White Blood Count 7.2 Thou/mm3 (3.6-11.0)
[2025-07-26] MEDS: Ampicillin Inj 2,000 MG in SODIUM CHLORIDE 0.9% (POP) 100 ML 200 MG IV (06:20)
[2025-07-26] MEDS: RINGERS LACTATED 1000 ML 1,000 ML 100 ML IV ×2 (06:21→08:46)
[2025-07-26 06:50] LABS: Syphilis Nonreactive (Nonreactive)
--- NOTE | 2025-07-26 08:54 | PD.LDANTE ---
Documentation for date of: 07/26/25 OB Labor/Induct. HPI History of Present Illness Chief complaint: rom [id number], early labor : 4 Para: 3 Term pregnancies: 3 pregnancies: 0 Living children: 3 History of Abortions: Spontaneous and Elective: 0 History of Vaginal deliveries: 3 History of sections: No History of : No Date of last menstrual period: 10/17/24 SADAF: 08/02/25 Gestational Age (weeks): 39 Gestational Age (days): 1 Gestational age based on last menstrual period: 40 History of present illness: 30-year-old 4 para 3 for complaints of leaking fluid since 3:30 in the morning. In early contractions. She has been followed at [facility]. Her last period October 11, 2025. She has for dates. She had her first ultrasound February 07, 2025. 15 weeks. This gave due date August 01, 2025. Patient denies social habits. Denies surgery. Denies chronic illness. She is A+, antibody screen negative, RPR nonreactive, rubella immune, hepatitis B negative, hep C negative, HIV negative, GC and Chlamydia were negative. She had a normal 1 hour. Her NIPT and carrier screen negative. And GBS is 53. Negative History of Present Dating criteria: LMP confirmed by 1st trimester US Adequate Care: Yes Ultrasounds: normal 1st trimester US and normal mid trimester US Obstetrical complications: none Medical complications: none Labs Labs: Positive: Rubella Titre and Group Beta Strep, Negative: RPR, Hepatitis B, HIV, Chlamydia and Gonorrhea and Unknown: Herpes Type 1, Herpes Type 2 and Covid-19 Review of Systems Review of Systems Systems Reviewed: All systems reviewed, normal except as documented Past Medical History Surgical History SURGICAL: Negative Section Meds Home Medications and Allergies Home Medications ?Medication ?Instructions ?Recorded ?Confirmed ?Type vitamins-iron fumarate 27 1 tab PO QDAY 02/24/19 07/26/25 History mg iron-folic acid 0.8 mg tablet ( Vitamin) Allergies Allergy/AdvReac Type Severity Reaction Status Date / Time Latex, Natural Rubber Allergy Mild Redness of Verified 07/26/25 06:20 Skin OB Exam Physical Exam Vital signs: Temp Pulse Resp BP 99.5 F 69 18 116/72 07/26/25 07:00 07/26/25 07:51 07/26/25 07:00 07/26/25 07:51 Narrative: Alert and oriented. Normal heart rate and rhythm. Lungs clear no wheezes. Gravid abdomen. Gynecoid pelvis. Estimated weight 7-1/2 pounds. Vaginal exam on admission was 80%, 3, -3. Vertex. Category 1. Leaking clear fluids. And irregular mild contractions Detailed Labor and Delivery Exam Dilation (cm): 3 Effacement (%): 80 Cervix position: mid station: -3 Consistency: soft Presentation: Vertex Cervical ripeness score: 8 monitor accelerations: 15x15 monitor decelerations: None [facility] variability: Moderate (11-25) Contraction frequency (min): irreg Contraction duration (sec): 30 Tachysystole: No Contraction intensity: Mild OB Results Labs 07/26/25 05:50 Labs: Short CBC 07/26/25 Range/Units 05:50 WBC 7.2 (3.6-11.0) Thou/mm3 Hgb 10.8 L (12.0-16.0) g/dL Hct 33.6 L (36.0-46.0) % Plt Count 128 L (140-440) Thou/mm3 OB Assessment & Plan Additional Plan Induction method: none Plan: augmentation, anticipate NVD and consult MD [place]
[2025-07-26] MEDS: Ampicillin Inj 1,000 MG in SODIUM CHLORIDE 0.9% (Popper) 50 ML 50 MG IV (10:04)
[2025-07-26] MEDS: OXYTOCIN INJ 10 UNIT/ML VIAL IM (13:28)
[2025-07-26] MEDS: OXYTOCIN in NS 20 units 20 UNIT/1,000 ML BAG 125 UNIT IV (13:28)
[2025-07-26] MEDS: IBUPROFEN TAB 400 MG TABLET 800 MG PO (13:46)
--- NOTE | 2025-07-26 13:46 | PD.LDDELS ---
Data (Manzanares) Data Hx Section: No : 4 Term: 3 : 0 Livin Abortions: Spontaneous & Theraputic: 0 Delivery Data (Manzanares) Labor Data Initiation of labor: Spontaneous Induction/Augmentation Agent: Artificial ROM ROM date: 07/26/25 ROM time: 03:30 Amniotic membrane rupture type: Spontaneous Amniotic fluid description: Clear Delivery Data EDC: 08/01/25 EDC calculated by:: LMP/early US confirmation Date of arrival to unit: 07/26/25 Time of arrival to unit: 04:48 Onset of labor date: 07/26/25 Onset of labor time: 03:30 Complete dilation date: 07/26/25 Complete dilation time: 13:11 Tracy delivery date: 07/26/25 Tracy delivery time: 13:16 Gestational age (weeks): 39 Gestational age (days): 1 Placenta delivery date: 07/26/25 Placenta delivery time: 13:20 Stage 1 total time: Labor - Stage 1 Duration 9 hours and 41 minutes Delivered by: logan burger Delivery nurse: antonio Cummings nurse: sachi west Range Scientist at delivery: No Support person(s) at delivery: fob, grandmother Delivery Method Delivery method: Normal Vaginal Delivery Presentation: Vertex position: OA Anesthesia Type Anesthesia Type: Epidural Delivery Room Medications Delivery room medications: Pitocin 10 u IM, Pitocin 20 u IV, Cytotec 800 LA and other (txa x2) Placenta Placenta delivery description: Spontaneous (inspected, intact) Cord blood sent to lab: Yes cord blood collection: Cord Blood Type Episiotomy Episiotomy description: None Lacerations #1: Vaginal: 2nd degree Perineal repair Sutures used for repair: 3.0 Vicryl Umbilical Cord cord description: 3 Vessels and Nuchal Cord (short cord) Data (Manzanares) Tracy Data order: 1 Tracy's gender: Female Identification band number: [id number] weight (gms): 3.5 g Weight (pounds): 0 lbs and 0.1 ozs Tracy length: 48.26 cm 1 minute: 9 5 minutes: 9
[2025-07-26] MEDS: TRANEXAMIC ACID 1,000 MG IVPB 1,000 MG/100 ML BAG 200 MG IV (13:47)
[2025-07-26] MEDS: DOCUSATE SOD 100 MG CAPSULE PO (20:18)
[2025-07-26 21:55] LABS: Basophils # (Auto) 0.0 Thou/mm3 (0.0-0.2); Basophils % (Auto) 0 % (0-2.5); Eosinophils # (Auto) 0.1 Thou/mm3 (0.0-0.5); Eosinophils % (Auto) 1 % (0-10); Hematocrit 29.4 % (36.0-46.0); Hemoglobin 9.5 g/dL (12.0-16.0); Immature Granulocytes Auto 0.03 Thou/mm3 (0.00-0.00); Lymphocytes # (Auto) 2.0 Thou/mm3 (1.0-4.8); Lymphocytes % (Auto) 21 % (10-50); Mean Corpuscular HGB Conc 32.3 g/dl (31.0-37.0); Mean Corpuscular Hemoglobin 25.0 pg (25.0-35.0); Mean Corpuscular Volume 77 fL (80-100); Monocytes # (Auto) 0.7 Thou/mm3 (0.0-0.8); Monocytes % (Auto) 7 % (0-12); Neutrophils # (Auto) 6.7 Thou/mm3 (1.8-7.7); Neutrophils % (Auto) 70 % (37-80); Nucleated Red Blood Cell # 0.00 Thou/mm3 (0.00-0.00); Nucleated Red Blood Cell % 0 /100 WBC (0); Platelet Count 120 Thou/mm3 (140-440); RDW Standard Deviation 38.4 fL (36.4-46.3); Red Blood Count 3.80 Miln/mm3 (4.00-5.20); White Blood Count 9.5 Thou/mm3 (3.6-11.0)
[2025-07-27] MEDS: ACETAMINOPHEN 325 MG TABLET 650 MG PO ×2 (01:01→08:22)
[2025-07-27] MEDS: IBUPROFEN TAB 400 MG TABLET 800 MG PO ×2 (05:05→15:34)
[2025-07-27 05:15] VITALS: BP 116/76; PULSE 65; RESP 17; TEMP 36.6; O2SAT 98
[2025-07-27 07:40] VITALS: BP 99/64; PULSE 98; RESP 17; TEMP 36.9; O2SAT 98
[2025-07-27] MEDS: DOCUSATE SOD 100 MG CAPSULE PO (08:22)
--- NOTE | 2025-07-27 08:43 | ESPR_ITS ---
Subjective Subjective Interval history: Complains of cramps. Complains of back pain that is improved by Motrin and Tylenol. Breast-feeding successfully. No dizziness Exam Vital Signs Temp Pulse Resp BP Pulse Ox O2 Del Method 98 F 65 17 116/76 98 Room Air 07/27/25 05:15 07/27/25 05:15 07/27/25 05:15 07/27/25 05:15 07/27/25 05:15 07/27/25 05:15 Narrative Exam Vital signs stable afebrile. Breast is soft. Fundus firm below the umbilicus. Perineum intact no swelling. Small lochia. Uterus swelling a little. Negative Homans' sign. 2+ DTRs Objective Labs 07/26/25 21:46 Labs: Laboratory Results - last 24 hr 07/26/25 21:46 WBC 9.5 RBC 3.80 L Hgb 9.5 L Hct 29.4 L MCV 77 L MCH 25.0 MCHC 32.3 RDW Std Deviation 38.4 Plt Count 120 L Neut % (Auto) 70 Lymph % (Auto) 21 [place] % (Auto) 7 Eos % (Auto) 1 Baso % (Auto) 0 Neut # (Auto) 6.7 Lymph # (Auto) 2.0 [place] # (Auto) 0.7 Eos # (Auto) 0.1 Baso # (Auto) 0.0 Immature Gran # (Auto) 0.03 H Absolute Nucleated RBC 0.00 Immature Gran % 0 Nucleated RBC % 0 Assessment & Plan Assessment Comment Assessment comment: 24 hr pp Plan Comment Plan Comment: Discharge home with baby. Continue vitamins and iron. Discussed Tylenol or ibuprofen for pack pain and cramps. Discussed comfort measures for back pain patient has a support. Discussed ER precautions and signs symptoms of infection. Discussed danger signs symptoms increase fluids. Return in 3 weeks visit Time Spent With Patient Time: Total time spent is greater than 50% in coordination of care (as documented) at patient's floor/unit and/or counseling patient:
--- NOTE | 2025-07-27 08:46 | PD.LDDS ---
DS: Providers Provider Date of admission: 07/26/25 05:40 Primary care physician: Physician No Primary/Family Admitting Provider: Onelia Mascorro CNM Attending Provider on Admission: Delmi Daniel MD Consults: 07/26/25 14:12 Referral Routine Comment: Attending Provider on DC: Onelia Mascorro CNM Discharging Provider: Onelia Mascorro CNM DS: Diagnosis Problem List Completed Was Problem List Reviewed/Reconciled?: Yes Summary/Hosp Course Brief History: 30-year-old 4 para 3 for complaints of leaking fluid since 3:30 in the morning. In early contractions. She has been followed at [facility] health clinic. Her last period October 11, 2025. She has for dates. She had her first ultrasound February 07, 2025. 15 weeks. This gave due date August 01, 2025. Patient denies social habits. Denies surgery. Denies chronic illness. She is A+, antibody screen negative, RPR nonreactive, rubella immune, hepatitis B negative, hep C negative, HIV negative, GC and Chlamydia were negative. She had a normal 1 hour. Her NIPT and carrier screen negative. And GBS is 53. Negative Peripartum Data Delivery Method: Normal Vaginal Delivery Episiotomy Description: None Laceration Description: yes (1 seth/vag) complications: none Time Spent with Patient Time attestation: Total time spent providing and/or coordinating discharge services: Exam Vital Signs Temp Pulse Resp BP Pulse Ox O2 Del Method 98 F 65 17 116/76 98 Room Air 07/27/25 05:15 07/27/25 05:15 07/27/25 05:15 07/27/25 05:15 07/27/25 05:15 07/27/25 05:15 Discharge Plan Problem List Was Problem List Reviewed/Reconciled?: Yes Plan Patient Disposition: HOME (Self Care) Patient condition on transfer: Stable Prescriptions/Referrals Prescriptions/Med Rec: No Action Vitamin 27 mg iron- 0.8 mg Tablet 1 tab PO QDAY Referrals: No Primary/Family,Physician [Primary Care Provider] - Patient/Caregiver Discharge Instructions Meds to Beds: No Discharge Activity: resume usual activities Print Language: Arabic Activity Restrictions/Additional Instructions: Discharge home with baby. Discussed comfort measures for first-degree perineal laceration with sitz bath's and spray. Continue vitamins and iron. Tylenol ibuprofen for pain. Discussed danger signs symptoms and signs symptoms of infection.. Discussed ER precautions. Return in 3 weeks visit Stand Alone Forms: Ree Award Info., Patient Portal Info Letter Planned Discharge Date 07/27/25
[2025-07-27 11:32] VITALS: BP 100/63; PULSE 57; RESP 16; TEMP 36.6; O2SAT 99
== END 2025-07-27 16:05 | disposition home or self-care (01) | DRG 560 ==
LOC: S4SX 13:52 → S4NX 17:51
PROVIDERS: Admitting Provider Advanced Practice Midwife; Visit Provider Obstetrics & Gynecology
DX: O69.3XX0 Labor and delivery complicated by short cord, not applicable or unspecified (principal); O69.81X0 Labor and delivery complicated by cord around neck, without compression, not applicable or unspecified; Z37.0 Single live birth; Z3A.39 39 weeks gestation of pregnancy; O71.4 Obstetric high vaginal laceration alone
CPT/HCPCS: 36415; 59025; 59409; 80307; 84112; 85025; 86780; 86850; 86900; 86901; 94762; J0290; J2590; J2795; J3010; J3490; J7050; J7120; S0191; A9270

== ENCOUNTER 2025-08-23 13:02 | Outpatient (AMB) | payer MEDICAID, SELFPAY ==
[2025-08-23 13:07] VITALS: BP 128/77; PULSE 73; RESP 16; TEMP 36.2; O2SAT 98
--- NOTE | 2025-08-23 13:07 | AMB.OBPP ---
Vital Signs 08/23/25 13:07 Weight 63.276 kg Weight Measurement Method Standing Scale BP 128/77 Blood Pressure Source Automatic Cuff Blood Pressure Location Left Upper Arm Position Sitting Respiration 16 Pulse 73 Pulse Source Monitor Temp 97.2 F Temp Source Oral Pulse Oximetry (%) 98 Oxygen Delivery Method Room Air Allergies/Home Meds Allergies & Medications Allergies Latex, Natural Rubber Allergy (Mild, Verified 08/23/25 13:09) Redness of Skin Medication Reconciliation vitamins-iron fumarate 27 mg iron-folic acid 0.8 mg tablet ( Vitamin) 1 tab PO QDAY 02/24/19 [History Confirmed 08/23/25] Intake Visit Data Collection New Patient or Established: Established Patient (seen at [facility] within 3 years) Reason for Visit:: <del>PP</del> Seen by Clinical Staff ONLY (RN/MA): No Academic Coordinator Required: No Do You Feel Safe at Home: Yes Authorities Contacted: N/A PCP or OBGYN visit in last 3 months: Yes Date of Last PCP or OBGYN visit: 07/27/25 Hx Now: No Are you currently on any form of Control: No Pain Present Currently: No Pain Scale Used: Quick-Padilla/Numerical Pain scale:: 0 Smoking Status Smoking Status: Never smoker 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 History Past Medical History: No Hx Neurological Disorders, No Hx Hypothyroidism, No Hx Hyperthyroidism, No Hx Breast Cancer, No Hx Cardiac Disorders, No Hx Hypertension, No Hx Cancer, No Hx Blood Disorders, No Hx Anemia, No Hx Gastrointestinal Disorders, No Hx Renal Disease, No Hx Deep Vein Thrombosis, No Hx Diabetes Mellitus Type 1, No Hx Diabetes Mellitus Type 2 and No Hx Polycystic Ovarian Syndrome Questionnaires Covid-19 Vaccine Questionnaire Has patient been vacinated for Covid-19 Have you been vacinated for Covid-19: Yes 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 Home: Yes Care OB Visit Log OB Flowsheet Initial Weight: Not Recorded Date <del>?</del> EGA Weight BP Alb Glu CTX Pres Fundal ht FHR Mov Dilation Station Effacement Hx Notes Visit Note 01/07/25 <del>?</del> 10w 4d 53.127 kg 103/61 130 03/18/25 <del>?</del> 20w 4d 59.024 kg 103/65 140 active Structural Survey order [facility]. Brace ordered for pubic bone diastasis 05/24/25 <del>?</del> 30w 1d 64.013 kg 105/65 active Having a hard time getting ultrasound ordered will order here for [facility]. Good movement no contractions no loss of fluids. 06/13/25 <del>?</del> 33w 0d 65.544 kg 109/68 125 active Had an ultrasound done at [facility]. No report yet. This was about 2 weeks ago. Good movement no contractions no loss of fluids. Works at [employer] and request going off work in about 3 weeks. Patient is around 32 weeks . 07/01/25 <del>?</del> 35w 4d 66.451 kg 104/66 occasional cephalic 36 147 active +FM, No UCs, No VB Need GBBS next visit 07/13/25 <del>?</del> 37w 2d 67.245 kg 113/71 occasional cephalic 37 134 active Good movement no contractions no vaginal bleeding. Declined cervical check today group B strep done today 07/19/25 <del>?</del> 38w 1d 68.039 kg 120/80 occasional cephalic 38 134 active Reports good movement. Denies contractions. Denies leaking. Denies bleeding. Discussed GBS results. Discussed labor precautions and kick count. Return in a week OB check SADAF Calculator Estimated Delivery Date Method Current WG Current Estimate 08/01/25 Ultrasound #2 43w 1d Other Estimates 07/18/25 LMP (Uncertain) 45w 1d 08/04/25 Ultrasound #1 42w 5d Expected Delivery Route/Plan 29-year-old -0-0-3 status post vaginal delivery x 3 anticipate . Patient has had 3 uncomplicated vaginal deliveries. care labs on chart:A +/antibody negative/rubella immune/RPR nonreactive/HIV negative/ hepatitis B surface antigen negative/hep C negative/GC negative/ Chlamydia negative /NIPT 46XX /urine culture negative/ Ultrasound at [facility] on 02/07/25 15 and 0/7 weeks AGA Specific Issue/Plans Keep an eye on platelets. Patient has 1 boy at home and 2 girls. This is another girl. Patient had an epidural with first . No epidural on the other 2 deliveries. Unsure about epidural this delivery. Notes Visit Date: 07/19/25 Last Updated by: Onelia Haney CNM OB panel: A+.abs-, rpr;;nr, rub imm, hbsag-,hiv-,HC-, GC/CT-, NIPT- Visit Date: 07/13/25 Last Updated by: Italia Reyna (OB Clinic)MD No complaints. Return in 1 week. Patient will decline epidural. Visit Date: 07/01/25 Last Updated by: Italia Reyna (OB Clinic)MD Patient is doing well. Reviewed 1 hour glucose at 108. Platelets are 124. Need report on chart of [facility] ultrasound. Visit Date: 03/18/25 Last Updated by: Italia Reyna (OB Clinic)MD Patient doing well. Will print out [facility] records. Structural survey ordered. She knows this is a another girl. She has 1 boy at home and now this is 3 girls. Patient has pubic bone diastases pain and I will order a brace. She will follow-up in 4 weeks. HPI Interval History: 30-year-old 4 para 4 for 3-week . Patient had a vaginal July 26, 2025. Baby girl weighing 7 pounds 11. Was her biggest baby. She had a first-degree vaginal perineal tear. Breast-feeding patient has good support at home. Denies depression. She is happy. Patient plans to use condoms. She has not had a period yet. No OUTSIDE DELIVERER complaints Was or delivery considered high risk: No Delivery type: vaginal Was labor induced: no Gestational age at delivery (weeks): 39.0 Delivery date: 07/26/25 Delivering provider: josh haney Delivery complications: Yes Is patient infant: No Is patient sexually active: No Contraception planned: condom Review of Systems Review of Systems ROS limited to current OUTSIDE DELIVERER complaints: Yes Exam Narrative Physical exam: Normal heart rate and rhythm. Lungs clear no wheezes. Abdomen is soft nontender. Uterus well involuted. Perineum is intact no lacerations. No swelling. Small lochia. Negative Homans' sign. 2+ DTRs. No edema no swelling. Breasts are soft. perineum healing, no swelling,no s/s of infection, non tender. no lochia General Limitations: no limitations General Appearance: alert, in no apparent distress, comfortable, cooperative, healthy appearing, well developed and well groomed Head Head exam: atraumatic, normocephalic and normal inspection Neck Neck exam: Present normal inspection, full ROM and trachea midline Chest Chest inspection: Present normal inspection and symmetric chest wall rise Resp Respiratory exam: Present normal lung sounds bilaterally Card Cardiovascular exam: Present regular rate, normal rhythm and normal heart sounds Abdominal Abdominal exam: Present soft and normal bowel sounds Extremities Extremities exam: Present normal inspection and full ROM Office Procedures OBC Clinic LOC & Office Proc's Nursing/Assessment Patient Status: Established Patient OB Clinic Nursing Assessment: Medication Reconciliation, Update PMH in EMR and Vital Signs OB Clinic Coordination of Care: Education Complex Pt/Fam, Consent,records obtained, informed consent, Lab and Imaging orders, Results/Orders obtained and Staff clarify orders Established Patient Charge Established Patient Point Assignment: 85 Established Patient Point Charge: EP Level 3 (80-115) Assessment & Plan Diagnosis / Problem List (1) 2 weeks follow-up: Status: Acute Plan Discussed care of first-degree perineal laceration. Sitz bath's as needed. This reviewed latching and breast-feeding positions. Continue prenatals. No sex yet. Reviewed condom use and compliance. Return in 3 weeks for follow-up Care Reviewed delivery summary and any complications: Yes Uterus involuted to: 3 below umb Perineal / incision healing noted: Yes Screened for depression: Yes Depression counseling provided: No Discussed family planning & contraception: Yes Contraception planned: condom Counseling on safe resumption of sexual activity: Yes Counseling on gradual excercise: Yes Discussed and concerns (describe), provided support: Yes Referred to desktop specialist: No Counseled on good nutrition, hydration, and self care: Yes Reviewed vaccine status: No Chronic & current problems reconciled on problem list: Yes care discussed; questions answered: feeding Follow up: routine/prn Additional counseling & anticipatory guidance provided: No heavy lifting. Comfort measures for vaginal pain and perineal pain. Increase fluids continue prenatals. Return in 3 weeks for follow-up
== END 2025-08-23 13:24 | disposition home or self-care (01) ==
LOC: HODSOBC 13:02
PROVIDERS: Supervising Provider Advanced Practice Midwife; Visit Provider Advanced Practice Midwife
DX: Z39.2 Encounter for routine postpartum follow-up (principal); Z39.1 Encounter for care and examination of lactating mother
CPT/HCPCS: 99213; G0463

== ENCOUNTER 2025-09-14 11:24 | Outpatient (AMB) | payer MEDICAID, SELFPAY ==
--- NOTE | 2025-09-14 11:42 | AMBOBPPN_ITS ---
Vital Signs 09/14/25 11:51 Height 1.52 m Height Method Stated Weight 65.431 kg Weight Measurement Method Standing Scale BMI 28.1 BP 109/74 Blood Pressure Source Automatic Cuff Blood Pressure Location Right Upper Arm Position Sitting Respiration 16 Pulse 66 Pulse Source Monitor Temp 98.8 F Temp Source Temporal Artery Scan Pulse Oximetry (%) 98 Oxygen Delivery Method Room Air Allergies/Home Meds Allergies & Medications Allergies Latex, Natural Rubber Allergy (Mild, Verified 09/14/25 11:52) Redness of Skin Medication Reconciliation vitamins-iron fumarate 27 mg iron-folic acid 0.8 mg tablet ( Vitamin) 1 tab PO QDAY 02/24/19 [History Confirmed 09/14/25] Intake Visit Data Collection New Patient or Established: Established Patient (seen at [facility] within 3 years) Reason for Visit:: PP Seen by Clinical Staff ONLY (RN/MA): No Manager Speech Required: No Do You Feel Safe at Home: Yes Authorities Contacted: N/A PCP or OBGYN visit in last 3 months: Yes Date of Last PCP or OBGYN visit: 08/23/25 Hx Now: No Pain Present Currently: No Pain Scale Used: Quick-Padilla/Numerical Pain scale:: 0 Smoking Status Smoking Status: Never smoker Immunizations Flu Vaccine in the Last 12 Months: No 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 History Past Medical History: No Hx Neurological Disorders, No Hx Hypothyroidism, No Hx Hyperthyroidism, No Hx Breast Cancer, No Hx Cardiac Disorders, No Hx Hypertension, No Hx Cancer, No Hx Blood Disorders, No Hx Anemia, No Hx Gastrointestinal Disorders, No Hx Renal Disease, No Hx Deep Vein Thrombosis, No Hx Diabetes Mellitus Type 1, No Hx Diabetes Mellitus Type 2 and No Hx Polycystic Ovarian Syndrome Questionnaires Covid-19 Vaccine Questionnaire Has patient been vacinated for Covid-19 Have you been vacinated for Covid-19: Yes 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 Home: Yes EPDS - PP Depression Screening Jolo Pospartum Depression Screen I have been able to laugh and see the funny side of things: (0) As much as I always could I have looked forward with enjoyment to things: (0) As much as I ever did I have blamed myself unnecessarily when things went wrong: (0) No, never I have been anxious or worried for no good reason: (0) No, not at all I have felt scared or panicky for no very good reason: (0) No, not at all Things have been getting on top of me: (0) No, I have been coping as well as ever I have been so unhappy that I have had difficulty sleeping: (0) No, not at all I have felt sad or miserable: (0) No, not at all I have been so unhappy that I have been crying: (0) No, never The thought of harming myself has occurred to me: (0) Never EPDS completed yes Care OB Visit Log OB Flowsheet Initial Weight: Not Recorded Date -?-?-?-?-?-?-?-?-?-?-?-?- EGA Weight BP Alb Glu CTX Pres Fundal ht FHR Mov Dilation Station Effacement Hx Notes Visit Note 01/07/25 -?-?-?-?-?-?-?-?-?-?-?-?- 10w 4d 53.127 kg 103/61 130 03/18/25 -?-?-?-?-?-?-?-?-?-?-?-?- 20w 4d 59.024 kg 103/65 140 active Structural Survey order [facility]. Brace ordered for pubic bone diastasis 05/24/25 -?-?-?-?-?-?-?-?-?-?-?-?- 30w 1d 64.013 kg 105/65 active Having a hard time getting ultrasound ordered will order here for [facility] Good movement no contractions no loss of fluids. 06/13/25 -?-?-?-?-?-?-?-?-?-?-?-?- 33w 0d 65.544 kg 109/68 125 active Had an ultrasound done at [facility]. No report yet. This was about 2 weeks ago. Good movement no contractions no loss of fluids. Works at [employer] and request going off work in about 3 weeks. Patient is around 32 weeks . 07/01/25 -?-?-?-?-?-?-?-?-?-?-?-?- 35w 4d 66.451 kg 104/66 occasional cephalic 36 147 active +FM, No UCs, No VB Need GBBS next v isit 07/13/25 -?-?-?-?-?-?-?-?-?-?-?-?- 37w 2d 67.245 kg 113/71 occasional cephalic 37 134 active Good movement no contractions no vaginal bleeding. Declined cervical check today group B strep done today 07/19/25 -?-?-?-?-?-?-?-?-?-?-?-?- 38w 1d 68.039 kg 120/80 occasional cephalic 38 134 active Reports good movement. Denies contractions. Denies leaking. Denies bleeding. Di scussed GBS results. Discussed labor precautions and kick count. Return in a week OB check SADAF Calculator Estimated Delivery Date Method Current WG Current Estimate 08/01/25 Ultrasound #2 46w 2d Other Estimates 07/18/25 LMP (Uncertain) 48w 2d 08/04/25 Ultrasound #1 45w 6d Expected Delivery Route/Plan 29-year-old -0-0-3 status post vaginal delivery x 3 anticipate . Patient has had 3 uncomplicated vaginal deliveries. care labs on chart:A +/antibody negative/rubella immune/RPR nonreactive/HIV negative/ hepatitis B surface antigen negative/hep C negative/GC negative/ Chlamydia negative /NIPT 46XX /urine culture negative/ Ultrasound at [facility] on 02/07/25 15 and 0/7 weeks AGA Specific Issue/Plans Keep an eye on platelets. Patient has 1 boy at home and 2 girls. This is another girl. Patient had an epidural with first . No epidural on the other 2 deliveries. Unsure about epidural this delivery. Notes Visit Date: 07/19/25 Last Updated by: Onelia Haney CNM OB panel: A+.abs-, rpr;;nr, rub imm, hbsag-,hiv-,HC-, GC/CT-, NIPT- Visit Date: 07/13/25 Last Updated by: Italia Reyna (OB Clinic)MD No complaints. Return in 1 week. Patient will decline epidural. Visit Date: 07/01/25 Last Updated by: Italia Reyna (OB Clinic)MD Patient is doing well. Reviewed 1 hour glucose at 108. Platelets are 124. Need report on chart of [facility] ultrasound. Visit Date: 03/18/25 Last Updated by: Italia Reyna (OB Clinic)MD Patient doing well. Will print out [facility] records. Structural survey ordered. She knows this is a another girl. She has 1 boy at home and now this is 3 girls. Patient has pubic bone diastases pain and I will order a brace. She will follow-up in 4 weeks. HPI Interval History: 30-year-old 4 para 4 for 6-week . Patient had a vaginal July 26, 2025. A baby girl weighing 7 pounds 11 ounces. She is breast and bottlefeeding. Patient has a lot of good support at home. Siblings are both adjusting. Father baby is involved. Patient has not had sex yet. May plan to use condoms. No interval complaints or issues noted patient. 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 Lungs clear no wheezes. Abdomen is soft nontender. Uterus well involuted. Perineum is intact no lacerations. No swelling. Small lochia. Negative Homans' sign. 2+ DTRs. No edema no swelling. Breasts are soft Office Procedures OBC Clinic LOC & Office Proc's Nursing/Assessment Patient Status: Established Patient OB Clinic Nursing Assessment: Medication Reconciliation, Update PMH in EMR and Vital Signs OB Clinic Coordination of Care: Complex Care and Chronic Disease 1-5, Education Complex Pt/Fam, Consent,records obtained, informed consent and Staff clarify orders Established Patient Charge Established Patient Point Assignment: 90 Established Patient Point Charge: EP Level 3 (80-115) Assessment & Plan Diagnosis / Problem List (1) 6 weeks follow-up: Status: Acute Plan Patient will be using condoms. Reviewed method and side effects. Also we reviewed compliance. Discussed breast-feeding and latching. Continue prenatals. Increase fluids. Okay to resume diet and exercise. And normal activities. Return as needed for change in control method or Pap smear in 2 years Care Reviewed delivery summary and any complications: Yes Uterus involuted to: 4 below umb Perineal / incision healing noted: Yes Screened for depression: Yes Depression counseling provided: No Discussed family planning & contraception: Yes Contraception planned: condom Counseling on safe resumption of sexual activity: Yes Counseling on gradual excercise: Yes Discussed and concerns (describe), provided support: Yes Referred to distribution specialist: No Counseled on good nutrition, hydration, and self care: Yes Reviewed vaccine status: Yes Chronic & current problems reconciled on problem list: Yes Infant care discussed; questions answered: feeding and sleep Follow up: routine/prn Additional counseling & anticipatory guidance provided: Discussed perineal comfort measures. Discussed latching. Increase fluids and rest. Return as needed for control or for Pap in 2 years
[2025-09-14 11:51] VITALS: BP 109/74; PULSE 66; RESP 16; TEMP 37.1; O2SAT 98; BMI 28.1
== END 2025-09-14 13:08 | disposition home or self-care (01) ==
LOC: HODSOBC 11:24
PROVIDERS: Supervising Provider Advanced Practice Midwife; Visit Provider Advanced Practice Midwife
DX: Z39.2 Encounter for routine postpartum follow-up (principal)
CPT/HCPCS: 99213; G0463